=== PATIENT | male | born 1990 | race Hispanic/Latino ===

== ENCOUNTER 2020-05-13 23:05 | Emergency (ER) | payer OTHER ==
[2020-05-14 01:15] VITALS: BP 123/67
--- NOTE | 2020-05-14 02:25 | Cat Scan Report ---
CT HEAD WITHOUT CONTRAST INDICATION: Hit head at work with Laceration TECHNIQUE: All CT scans at this location are performed using CT dose reduction for ALARA by means of automated exposure control. COMPARISON: None available. FINDINGS: BRAIN: No hemorrhage or mass effect are seen. No evidence of acute infarction is noted. 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 ORBITS: Normal as visualized. SOFT TISSUES OF HEAD: Normal. CALVARIUM: Normal. VISUALIZED PARANASAL SINUSES AND MASTOID AIR CELLS: Clear. ADDITIONAL FINDINGS: None. IMPRESSION: No acute intracranial abnormality. Signer Name: Dorian Ramirez MD Signed: 05/14/2020 2:20 AM Workstation Name: [id number]
[2020-05-14] MEDS ORDERED: IBUPROFEN 600 MG TAB PO ONE (03:10)
[2020-05-14] MEDS ORDERED: ONDANSETRON 4 MG ODT TAB PO ONE (03:10)
--- NOTE | 2020-05-14 05:10 | Emergency Department Report ---
ED Head Trauma HPI - General Chief complaint: Head Injury Stated complaint: HEAD LAC Source: patient, EMS Mode of arrival: Ambulatory Limitations: No Limitations - History of Present Illness Initial comments: Patient is a 30-year-old white male with no past medical history who presents to the ED with complaint of acute onset painful bleeding parietal scalp laceration after he accidentally bumped his head on a sharp object at work accidentally about 4 hours ago. Patient states that he felt lightheaded with nausea and severe pain but states that about 2 hours ago the nausea and the lightheadedness resolved but he still has the severe headache. Patient states that he is up-to-date with all his vaccinations. Patient denies dizziness, loss of consciousness, chest pain, shortness of breath, neck pain, change in vision, change in speech, fall, syncope, vomiting or palpitations. MD Complaint: head injury, other (parietal scalp bleeding laceration) -: Sudden, hour(s) (4) Mechanism of Injury: work related injury (sharp object at work cut his scalp as he tried to get up) Location: parietal Loss of Consciousness: no Previous Trauma to this Area: No Place: work Radiation: none Severity: severe Severity scale (0 -10): 7 Quality: sharp, aching Consistency: constant Provoking factors: none known Other Injuries: none Associated Symptoms: denies other symptoms, nausea (briefly), other (lightheaded ness briefly). denies: confusion, amnesia, repetitive questioning, vision changes, vomiting, vertigo, syncope, numbness, weakness - Related Data Previous Rx's Medication Instructions Recorded Last Taken Type Ibuprofen [Motrin] 800 mg PO Q8HR PRN #24 tablet 05/14/20 Unknown Rx cephALEXin [Keflex] 500 mg PO Q12HR #20 cap 05/14/20 Unknown Rx Allergies/Adverse reactions: Allergies Allergy/AdvReac Type Severity Reaction Status Date / Time No Known Allergies Allergy Unverified 05/14/20 00:59 ED Review of Systems ROS: Stated complaint: HEAD LAC Other details as noted in HPI Constitutional: denies: chills, fever Eyes: denies: eye pain, eye discharge, vision change ENT: denies: ear pain, throat pain Respiratory: denies: cough, shortness of breath, wheezing Cardiovascular: denies: chest pain, palpitations Endocrine: no symptoms reported Gastrointestinal: nausea. denies: abdominal pain, diarrhea Genitourinary: denies: urgency, dysuria Musculoskeletal: denies: back pain, joint swelling, arthralgia Skin: other (Bleeding parietal scalp laceration). denies: rash, lesions Neurological: headache, other (lightheadedness). denies: weakness, paresthesias Psychiatric: denies: anxiety, depression Hematological/Lymphatic: denies: easy bleeding, easy bruising ED Past Medical Hx - Past Medical History Previous Medical History?: No - Surgical History Past Surgical History?: No - Social History Smoking Status: Never Smoker - Medications Home Medications: Home Medications Medication Instructions Recorded Confirmed Last Taken Type Ibuprofen [Motrin] 800 mg PO Q8HR PRN #24 tablet 05/14/20 Unknown Rx cephALEXin [Keflex] 500 mg PO Q12HR #20 cap 05/14/20 Unknown Rx ED Physical Exam - General Limitations: No Limitations General appearance: alert, in no apparent distress - Head Head exam: Present: other (Bleeding 3 cm laceration on parietal scalp) - Eye Eye exam: Present: normal appearance, PERRL, EOMI Pupils: Present: normal accommodation - ENT ENT exam: Present: normal exam, normal orophraynx, mucous membranes moist, TM's normal bilaterally, normal external ear exam - Neck Neck exam: Present: normal inspection, full ROM - Respiratory Respiratory exam: Present: normal lung sounds bilaterally. Absent: respiratory distress, wheezes, rales, stridor, chest wall tenderness, accessory muscle use, decreased breath sounds, prolonged expiratory - Cardiovascular Cardiovascular Exam: Present: regular rate, normal rhythm, normal heart sounds. Absent: systolic murmur, diastolic murmur, rubs, gallop - GI/Abdominal GI/Abdominal exam: Present: soft, normal bowel sounds. Absent: tenderness, guarding, rebound, hyperactive bowel sounds, organomegaly - Extremities Exam Extremities exam: Present: normal inspection, full ROM, normal capillary refill - Back Exam Back exam: Present: normal inspection, full ROM. Absent: tenderness, CVA tenderness (R), CVA tenderness (L), muscle spasm, paraspinal tenderness, vertebral tenderness - Neurological Exam Neurological exam: Present: alert, oriented X3, CN II-XII intact, normal gait, reflexes normal - Psychiatric Psychiatric exam: Present: normal affect, normal mood - Skin Skin exam: Present: warm, dry, intact, normal color, other (Bleeding 3 cm laceration on parietal scalp). Absent: rash ED Course Vital Signs 05/14/20 00:59 Temperature 97.9 F Pulse Rate 67 Respiratory 16 Rate Blood Pressure 123/67 O2 Sat by Pulse 100 Oximetry - Laceration /Wound Repair Parietal Wound Location: head (parietal scalp) Wound Length (cm): 3 Wound's Depth, Shape: superficial, linear Wound Explored: contaminated Irrigated w/ Saline (ccs): 50 Betadine Prep?: No Volume Anesthetic (ccs): 0 Wound Debrided: extensive Wound Repaired With: Dermabond (sandee) Number of Sutures: 6 (Sandee) Layer Closure?: No Sterile Dressing Applied?: No Progress: Patient tolerated the procedure well. Patient was then discharged home on pain medications and prophylactic antibiotics and advised to follow-up with his primary care physician in 7 to 10 days for reevaluation or return to the ED immediately if symptoms get worse. Patient was also advised to return to the ED or to his primary care physician for sandee removal in 10 days. - Radiology Data Radiology results: report reviewed, image reviewed Findings [place] [id number] Cat Scan Report Signed Patient: ELLIE SHAFER MR#: [id number] : 1990 Acct:[id number] Age/Sex: 30 / M ADM Date: 05/13/20 Loc: ED Attending Dr: Ordering Physician: LEXIE MURCIA MD Date of Service: 05/14/20 Procedure(s): CT head/brain wo con Accession Number(s): [id number] cc: LEXIE MURCIA MD CT HEAD WITHOUT CONTRAST INDICATION: Hit head at work with Laceration TECHNIQUE: All CT scans at this location are performed using CT dose reduction for ALARA by means of automated exposure control. COMPARISON: None available. FINDINGS: BRAIN: No hemorrhage or mass effect are seen. No evidence of acute infarction is noted. 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 ORBITS: Normal as visualized. SOFT TISSUES OF HEAD: Normal. CALVARIUM: Normal. VISUALIZED PARANASAL SINUSES AND MASTOID AIR CELLS: Clear. ADDITIONAL FINDINGS: None. IMPRESSION: No acute intracranial abnormality. Signer Name: Dorian Ramirez MD Signed: 05/14/2020 2:20 AM Workstation Name: [id number] Transcribed By: FELIPE Dictated By: Dorian Ramirez MD Electronically Authenticated By: Dorian Ramirez MD Signed Date/Time: 05/14/20219 DD/ 6 TD/TT: - Medical Decision Making This is a 30-year-old white male with no past medical history who presents to the ED with complaint of acute onset painful bleeding parietal scalp laceration after he accidentally bumped his head on a sharp object at work accidentally about 4 hours ago. Patient states that he felt lightheaded with nausea and severe pain but states that about 2 hours ago the nausea and the lightheadedness resolved but he still has the severe headache. Patient states that he is up-to-date with all his vaccinations. In the ED, patient is alert and oriented x3 and is not in distress. Patient was treated for pain in the ED and head CT scan without contrast shows no acute intracranial abnormalities or hemorrhage. The parietal scalp bleeding laceration was cleaned thoroughly and stapled with a total of 6 sandee. Patient tolerated the procedure well and was discharged home on medications. Patient was advised to return to the ED immediately if symptoms get worse, otherwise follow-up with his primary care physician in 7 to 10 days for reevaluation or return to the ED or to his primary care physician in 8 to 10 days for sandee removal. - Differential Diagnosis scalp laceration; head injury; scalp contusion - Core Measures AMI Core Measures Followed: No Measure Exclusions: not indicated - NEXUS Criteria Focal neurological deficit present: No Midline spinal tenderness present: No Altered level of consciousness: No Intoxication present: No Distracting injury present: No NEXUS results: C-Spine can be cleared clinically by these results. Imaging is not required. Critical care attestation.: If time is entered above; I have spent that time in minutes in the direct care of this critically ill patient, excluding procedure time. ED Disposition Clinical Impression: Laceration of scalp Qualifiers: Encounter type: initial encounter Qualified Code(s): S01.01XA - Laceration without foreign body of scalp, initial encounter Contusion of scalp Qualifiers: Encounter type: initial encounter Qualified Code(s): S00.03XA - Contusion of scalp, initial encounter Post-traumatic headache, not intractable Qualifiers: Headache chronicity pattern: acute headache Qualified Code(s): G44.319 - Acute post-traumatic headache, not intractable Disposition: DC-01 TO HOME OR SELFCARE Is pt being admited?: No Does the pt Need Aspirin: No Condition: Stable Instructions: Acute Headache (ED), Laceration (ED), Scalp Contusion in Adults (ED) Additional Instructions: Take medication with food, drink plenty of fluids and follow-up with your primary care physician in 7 to 10 days for reevaluation. Return to the ED immediately if symptoms get worse. Otherwise return to the ED or to your primary care physician in 8 to 10 days for sandee removal. Prescriptions: cephALEXin [Keflex] 500 mg PO Q12HR #20 cap Ibuprofen [Motrin] 800 mg PO Q8HR PRN #24 tablet PRN Reason: Pain , Severe (7-10) Referrals: [facility] [Provider Group] - 7-10 days Forms: Work/School Release Form(ED) Time of Disposition: 05:12 Print Language: VIET[place]
== END 2020-05-14 05:43 | disposition home or self-care (01) ==
LOC: ED 23:05
DX: S01.01XA Laceration without foreign body of scalp, initial encounter (principal); G44.319 Acute post-traumatic headache, not intractable; X58.XXXA Exposure to other specified factors, initial encounter; Y93.89 Activity, other specified; Y92.89 Other specified places as the place of occurrence of the external cause; Y99.0 Civilian activity done for income or pay
CPT/HCPCS: 70450; Q0162